=== PATIENT | male | born 1940 | race Caucasian/White ===

== ENCOUNTER 2020-07-13 12:32 | Inpatient (IN) | payer MEDICARE, BC, OTHER ==
--- NOTE | 2020-07-13 13:27 | CT ---
CT BRAIN WITHOUT CONTRAST: HISTORY:Right-sided numbness dizziness right-sided weakness and shuffling gait FINDINGS: There are foci of decreased attenuation in the periventricular white matter, consistent with chronic small vessel ischemic disease. No evidence of acute infarct, hemorrhage, midline shift or abnormal extra-axial fluid collections is seen. The ventricular size is appropriate and the basilar cisterns are patent. The bony calvarium is intact. The visualized paranasal sinuses and mastoid air cells are well aerated. IMPRESSION: No CT evidence of acute intracranial process.
[2020-07-13 13:53] LABS: #Eosinphils 0.2 thou/uL (0.0-0.7); #Lymphocytes 1.5 thou/uL (1.20-3.40); #Monocytes 0.4 thou/uL (0.11-0.59); #Neutrophils 4.2 thou/uL (1.40-6.50); %Basophils 0.7 % (0.0-1.0); %Eosinophils 3.8 % (0.0-10.0); %Lymphocytes 22.9 % (21.0-51.0); %Monocytes 6.5 % (0.0-10.0); Hemoglobin 15.8 g/dL (14.0-18.0); Mean Corpuscular HGB CONC 34.7 g/dL (32.0-36.0); Mean Corpuscular Hemoglobin 35.3 pg (27.0-31.0); Mean Platelet Volume 7.3 fL (7.4-10.4); Platelet Count 144 thou/uL (130-400); RBC Distribution Width 12.1 % (11.5-14.5); Red Blood Cell (RBC) Count 4.48 mill/uL (4.70-6.10); White Blood Cell (WBC) Count 6.3 thou/uL (4.8-10.8)
[2020-07-13] MEDS ORDERED: Aspirin Chewable 81 MG TAB ONE (14:15)
[2020-07-13 14:16] LABS: ALT (SGPT) 14 U/L (8-55); AST (SGOT) 19 U/L (5-34); Albumin 4.2 g/dL (3.4-4.8); Alkaline Phosphatase 60 U/L (40-110); Anion Gap 12 mmol/L (10-20); BUN (Urea Nitrogen) 17 mg/dL (8.4-25.7); Bilirubin, Total 0.8 mg/dL (0.2-1.2); Calc. Creatinine Clearance 0 mL/min (70-130); Calcium 9.1 mg/dL (7.8-10.44); Carbon Dioxide 26 mmol/L (23-31); Chloride 105 mmol/L (98-107); Estimated GFR-MDRD 61; Globulin 2.6 g/dL (2.4-3.5); Glucose 99 mg/dL (83-110); Protein, Total 6.8 g/dL (5.8-8.1); Sodium 139 mmol/L (136-145)
[2020-07-13 14:27] LABS: Bilirubin Negative (Negative); Blood, Urine Negative (Negative); Clarity Clear (Clear); Glucose, Urine (Dipstick) Normal (Negative); Ketone, Urine 10 mg/dL (Negative); Leukocyte Negative Leu/uL (Negative); Nitrite Negative (Negative); Protein, Urine (Dipstick) Negative (Neg-Trace); Specific Gravity, Urine 1.011 (1.002-1.036); Urobilinogen Normal mg/dL (Less than 2); pH, Urine 6.5 (5.0-9.0)
[2020-07-13 17:33] VITALS: BMI 23.5
[2020-07-13] MEDS ORDERED: Labetalol HCl 100 MG/20 ML VIAL SLOW IVP PRN (18:29)
[2020-07-13] MEDS ORDERED: hydrALAZINE 20 MG/ML VIAL SLOW IVP PRN (18:29)
[2020-07-13 18:36] LABS: Troponin I 0.012 ng/mL (< 0.028)
--- NOTE | 2020-07-13 18:39 | PDOC.HHP ---
Hospitalist HPI - History of Present Illness High blood pressure History of Present Illness: PCP: Dr. Norman Schwab The patient is a 80-year-old male with no significant past medical history. He presents to the ER today for elevated blood pressure and right hand numbness. He states that Monday morning at 2 AM he went to the restroom and noticed that his right foot was numb. By Monday this numbness had resolved however he was then having some right hand numbness. He does state that his hands and feet are usually cold and he does sleep with gloves and socks on but he felt that this was different than the cold feeling he feels. Of note the patient on morning was attempting to park his car and his leg was hanging out the door when the car did not slide into park. This struck his heel approximately 60 feet. On Monday he went to see his regular physician. They gave him a tetanus shot and cleaned his wound. He does not remember what his blood pressure was at the time of the office visit. Today he went to urgent care due to elevated blood pressure in the right hand numbness. It was also reported in the ER that he has had dizziness off and on. In the urgent care today his blood pressure was 188/133. Patient denies any chest pain, abdominal pain, headache, trauma other than the car driving, new medications, increased stressors, contact with sick persons. ED Course: Today in the ER they performed lab work, urinalysis, CT of the brain, and EKG. They administered 324 mg of aspirin. Hospitalist ROS - Review of Systems Constitutional: denies: fever, chills, sweats, weakness, malaise, other Eyes: denies: pain, vision change, conjunctivae inflammation, eyelid inflammation, redness, other Respiratory: denies: cough, dry, shortness of breath, hemoptysis, SOB with excertion, pleuritic pain, sputum, wheezing, other Cardiovascular: denies: chest pain, palpitations, orthopnea, paroxysmal noc. dyspnea, edema, light headedness, other Neurological: reports: weakness (Right side), numbness (Right hand and right foot) All other systems reviewed; all pertinent +/- noted in HPI/Subj - Medication Medications: No known drug allergies Current medications: Amitriptyline and Benadryl to sleep at night Hospitalist History - Past Medical History Source: patient Psych: reports: Depression - Past Surgical History Past Surgical History: reports: Tonsillectomy - Family History Family History: reports: no pertinent history - Social History Smoking Status: Former smoker Alcohol: reports: Heavy Drugs: reports: none Living Situation: With Family - Exam General Appearance: NAD, awake alert General - other findings: VS: 189/119, P 84, respiratory 17, temp 98.0, 99% room air Eye: PERRL, anicteric sclera ENT: normocephalic atraumatic, moist mucosa Neck: supple, symmetric, no lymphadenopathy Heart: no murmur, no gallops, no rubs, normal peripheral pulses Respiratory: CTAB, no wheezes, no rales, no ronchi, normal chest expansion Gastrointestinal: soft, non-tender, non-distended, normal bowel sounds Extremities: no cyanosis, no edema Skin - other findings: Abrasions to left perez, left heel wrapped by wound care Neurological: cranial nerve grossly intact, normal sensation to touch Neurological - other findings: Right-sided drift upper and lower extremities, cerebellar intact Psychiatric: normal affect, normal behavior Hospitalist Results - Labs Result Diagrams: 07/13/20 13:32 07/13/20 13:32 Lab results: WBC 6.3 thou/uL (4.8-10.8) 07/13/20 13:32 Hgb 15.8 g/dL (14.0-18.0) 07/13/20 13:32 Hct 45.6 % (42.0-52.0) 07/13/20 13:32 MCV 102.0 fL (78.0-98.0) H 07/13/20 13:32 Plt Count 144 thou/uL (130-400) 07/13/20 13:32 Neutrophils % 66.0 % (42.0-75.0) 07/13/20 13:32 Sodium 139 mmol/L (136-145) 07/13/20 13:32 Potassium 4.0 mmol/L (3.5-5.1) 07/13/20 13:32 Chloride 105 mmol/L (98-107) 07/13/20 13:32 Carbon Dioxide 26 mmol/L (23-31) 07/13/20 13:32 BUN 17 mg/dL (8.4-25.7) 07/13/20 13:32 Creatinine 1.16 mg/dL (0.7-1.3) 07/13/20 13:32 Glucose 99 mg/dL (83-110) 07/13/20 13:32 Calcium 9.1 mg/dL (7.8-10.44) 07/13/20 13:32 Total Bilirubin 0.8 mg/dL (0.2-1.2) 07/13/20 13:32 AST 19 U/L (5-34) 07/13/20 13:32 ALT 14 U/L (8-55) 07/13/20 13:32 Alkaline Phosphatase 60 U/L (40-110) 07/13/20 13:32 Troponin I 0.023 ng/mL (< 0.028) 07/13/20 13:32 B-Natriuretic Peptide 21.2 pg/mL (0-100) 07/13/20 13:32 Serum Total Protein 6.8 g/dL (5.8-8.1) 07/13/20 13:32 Albumin 4.2 g/dL (3.4-4.8) 07/13/20 13:32 Urine Ketones 10 mg/dL (Negative) A 07/13/20 14:19 Urine Blood Negative (Negative) 07/13/20 14:19 Urine Nitrite Negative (Negative) 07/13/20 14:19 Ur Leukocyte Esterase Negative Magali/uL (Negative) 07/13/20 14:19 - EKG Interpretation EKG: SR with PVC 87 bpm - Radiology Interpretation CT scan - head Status: report reviewed by me Additional Comment: IMPRESSION: No CT evidence of acute intracranial process. Hospitalist H&P A/P - Problem (1) TIA (transient ischemic attack) Code(s): G45.9 - TRANSIENT CEREBRAL ISCHEMIC ATTACK, UNSPECIFIED Status: Acute (2) Hypertensive crisis Code(s): I16.9 - HYPERTENSIVE CRISIS, UNSPECIFIED Status: Acute (3) Open wound of heel Code(s): S91.309A - UNSPECIFIED OPEN WOUND, UNSPECIFIED FOOT, INITIAL ENCOUNTER Status: Acute (4) Alcohol use Code(s): Z72.89 - OTHER PROBLEMS RELATED TO LIFESTYLE Status: Chronic - Plan Plan: TIA Neurology consult Carotid Doppler and echo ordered for a.m. Fasting lipid profile in a.m. Continue to trend troponins NIH every shift Swallow eval prior to eating Hypertensive crisis PRN medications available May need to be started on home medications if blood pressure does not begin to decrease without needing medication Vital signs every 4 hours Heel wound Wound care team to evaluate and treat History of alcohol use Patient drinks multiple drinks per day, will be placed on ASE protocol VTE prophylaxis and GI prophylaxis in place CODE STATUS: Full Surrogate decision-maker: Isabella
[2020-07-13 20:46] LABS: Troponin I 0.015 ng/mL (< 0.028)
--- NOTE | 2020-07-13 21:00 | ULT ---
BILATERAL CAROTID DUPLEX ULTRASOUND: DATE: 07/13/2020 HISTORY: CVA. TECHNIQUE: Fontenot scale ultrasound with color flow and spectral Doppler imaging of the extracranial carotid artery systems is performed bilaterally. FINDINGS: Minimal plaque is noted. The peak systolic velocity in the right ICA measures 49 cm/second with an end-diastolic velocity of 1 4 cm/second and a systolic ratio of 0.65. The peak systolic velocity in the left ICA measures 43 cm/second with an end-diastolic velocity of 14 cm/second and a systolic ratio of 0.64. Flow in both vertebral arteries remains antegrade. IMPRESSION: No evidence of hemodynamically significant stenosis. POS: [facility]
[2020-07-13] MEDS: Atorvastatin Calcium 40 MG TAB PO SCH (22:05)
[2020-07-13] MEDS: Amitriptyline HCl 10 MG TAB PO SCH (22:05)
[2020-07-13] MEDS: diphenhydrAMINE 50 MG CAP PO SCH (22:05)
[2020-07-14] MEDS ORDERED: Acetaminophen 325 MG TAB PO PRN (04:53)
[2020-07-14 06:17] LABS: Cardiac Risk 3.9 (Less than 4.5)
[2020-07-14] MEDS: Enoxaparin Sodium 40 MG/0.4 ML SYRINGE SC SCH (08:29)
[2020-07-14] MEDS: Aspirin 81 mg Enteric Coated Tablet PO SCH (08:29)
[2020-07-14 11:47] LABS: SARS-CoV-2 MS2 Positive; SARS-CoV-2 N Gene Negative; SARS-CoV-2 S Gene Negative; SARS-CoV-2 by NAA Not Detected (NotDetected); SARS-CoV-2 orf1ab Negative
--- NOTE | 2020-07-14 13:58 | PDOC.HOSPP ---
- Subjective Encounter Date: 07/14/20 Encounter Time: 13:45 Subjective: f/u for suspected TIA/CVA with negative CT brain. MRI showing acute lacunar infarct in L thalamus. - Objective Vital Signs & Weight: Vital Signs (12 hours) Temp Pulse Resp BP BP Pulse Ox 07/14/20 12:15 72 151/89 H 07/14/20 11:27 97.6 F 81 21 H 98 07/14/20 10:52 128/97 H 07/14/20 07:25 97.6 F 74 18 128/97 H 98 07/14/20 03:45 97.9 F 90 18 151/101 H 98 Weight Admit Weight 173 lb 4.992 oz Weight 173 lb 4.992 oz I&O: 07/13/20 07/14/20 07/15/20 06:59 06:59 06:59 Intake Total 500 240 Output Total 250 Balance 250 240 Result Diagrams: 07/13/20 13:32 07/13/20 13:32 Additional Labs: Laboratory Tests 07/13/20 07/13/20 07/14/20 13:32 16:24 04:19 B-Natriuretic Peptide 21.2 Triglycerides 104 Cholesterol 205 H LDL Cholesterol, Calc 131 HDL Cholesterol 53 COVID-19 PCR Not Detected Radiology Reviewed by me: Yes (MRI brain - acute lacunar infarct L thalamus) EKG Reviewed by me: Yes (Tele - SR) Hospitalist ROS - Medication Medications: Active Medications Generic Name Dose Route Start Last Admin Trade Name Freq PRN Reason Stop Dose Admin Acetaminophen 650 mg 07/14/20 04:53 07/14/20 05:05 Tylenol PO 650 mg Q6H PRN Administration Pain Amitriptyline HCl 10 mg 07/13/20 21:00 07/13/20 22:05 Elavil PO 10 mg HS TORY Administration Aspirin 81 mg 07/14/20 09:00 07/14/20 08:29 Ecotrin PO 81 mg DAILY TORY Administration Atorvastatin Calcium 40 mg 07/13/20 21:00 07/13/20 22:05 Lipitor PO 40 mg HS TORY Administration Diphenhydramine HCl 50 mg 07/13/20 21:00 07/13/20 22:05 Benadryl PO 50 mg HS TORY Administration Enoxaparin Sodium 40 mg 07/14/20 09:00 09/08/20 08:29 Lovenox SC 40 mg 0900 TORY Administration Hydralazine HCl 10 mg 07/13/20 18:29 07/13/20 20:39 Apresoline SLOW IVP 10 mg Q4H PRN Administration SBP Greater Than 180 Labetalol HCl 20 mg 07/13/20 18:29 07/14/20 11:41 Normodyne SLOW IVP 20 mg Q1H PRN Administration BP > 180 Pantoprazole Sodium 40 mg 07/14/20 09:00 07/14/20 08:29 Protonix PO 40 mg DAILY TORY Administration - Exam General Appearance: NAD, awake alert Eye: PERRL, anicteric sclera ENT: normocephalic atraumatic, no oropharyngeal lesions Neck: supple, symmetric, no JVD, no thyromegaly, no lymphadenopathy Heart: RRR, no murmur, no gallops, no rubs, normal peripheral pulses Heart - other findings: S1, S2 Respiratory: CTAB, no wheezes, no rales, no ronchi, normal chest expansion Gastrointestinal: soft, non-tender, non-distended, normal bowel sounds, no palpable masses Extremities: no cyanosis, no clubbing, no edema Skin: normal turgor, no lesions Neurological: cranial nerve grossly intact Neurological - other findings: RU/LE with 4/5 strength Musculoskeletal: normal tone, generalized weakness Psychiatric: normal affect, A&O x 3 Hosp A/P (1) Acute CVA (cerebrovascular accident) Code(s): I63.9 - CEREBRAL INFARCTION, UNSPECIFIED Status: Acute Plan: Lacunar infarct in L thalamus, continue ASA/Lipitor, 2D echo pending (2) Hypertensive urgency Code(s): I16.0 - HYPERTENSIVE URGENCY Status: Acute Plan: Improved, start Metoprolol 12.5mg BID, serial BP monitoring (3) Alcohol abuse Code(s): F10.10 - ALCOHOL ABUSE, UNCOMPLICATED Status: Chronic Plan: Cessation resources prior to d/c (4) HTN (hypertension) Code(s): I10 - ESSENTIAL (PRIMARY) HYPERTENSION Status: Chronic Qualifiers: Hypertension type: essential hypertension Qualified Code(s): I10 - Essential (primary) hypertension Plan: Likely untreated, start Metoprolol 12.5mg BID, serial monitoring (5) Open wound of heel Code(s): S91.309A - UNSPECIFIED OPEN WOUND, UNSPECIFIED FOOT, INITIAL ENCOUNTER Status: Acute Qualifiers: Laterality: left Plan: WCT for local care - Plan PT/OT, social sciences chair, out of bed/ambulate, DVT proph w/SCDs Continue routine stroke protocol Continue ASA/Lipitor 2D echo pending OOB with PT ETOH cessation resources Likely home in am
--- NOTE | 2020-07-14 14:09 | CON ---
NEUROLOGY CONSULTATION DATE OF CONSULTATION: 07/14/2020 REASON FOR CONSULTATION: Transient ischemic attack. HISTORY OF PRESENT ILLNESS: Mr. Cl Blankenship is a 80-year-old male with no significant medical history, presented to the emergency room with hypertension and right hand numbness. Per patient, on Monday morning around 02:00 a.m., he went to the restroom and noticed his right foot was numb. By Monday, the numbness had resolved, and he then was having right hand numbness. He disregarded it, but then on morning he was trying to park his car and his leg was hanging out of the door and he was unable to park, he felt extremely confused and dizzy during that time. On Monday, he went to see his regular physician, who gave him tetanus shot and cleaned his wound, but then he continued to feel dizzy and went to the Urgent Care to check his blood pressure and was concerned about right hand numbness and intermittent episodes of dizziness on 07/13/2020. His blood pressure was found to be 188/133 and he was advised to come to the emergency room for further management. In the emergency room, he was given aspirin and a CT scan of the head was done, which was negative for acute intracranial process. EKG showed normal sinus rhythm and lab work was essentially unremarkable. The patient denies nausea, vomiting, headache, chest pain, focal weakness, focal paresthesias, loss of vision, blurred vision, or loss of consciousness associated with the episode. REVIEW OF SYSTEMS: All 14 systems were reviewed and were negative except for the pertinent positives and negatives mentioned in the HPI. ALLERGIES: NO KNOWN DRUG ALLERGIES. PAST MEDICAL HISTORY: Depression, hypertension. PAST SURGICAL HISTORY: Tonsillectomy. FAMILY HISTORY: No significant family history. SOCIAL HISTORY: The patient lives with family. He is a former smoker and reports heavy alcohol abuse. Denies illegal drug abuse. - Current medications: Amitriptyline and Benadryl to sleep at night Objective Vital Signs & Weight: Vital Signs (12 hours) Temp Pulse Resp BP BP Pulse Ox 07/14/20 12:15 72 151/89 H 07/14/20 11:27 97.6 F 81 21 H 98 07/14/20 10:52 128/97 H 07/14/20 07:25 97.6 F 74 18 128/97 H 98 09/08/20 03:45 97.9 F 90 18 151/101 H 98 Weight Admit Weight 173 lb 4.992 oz Weight 173 lb 4.992 oz I&O: 07/13/20 07/14/20 07/15/20 06:59 06:59 06:59 Intake Total 500 240 Output Total 250 Balance 250 240 Active Medications Generic Name Dose Route Start Last Admin Trade Name Freq PRN Reason Stop Dose Admin Acetaminophen 650 mg 07/14/20 04:53 07/14/20 05:05 Tylenol PO 650 mg Q6H PRN Administration Pain Amitriptyline HCl 10 mg 07/13/20 21:00 07/13/20 22:05 Elavil PO 10 mg HS TORY Administration Aspirin 81 mg 07/14/20 09:00 07/14/20 08:29 Ecotrin PO 81 mg DAILY TORY Administration Atorvastatin Calcium 40 mg 07/13/20 21:00 07/13/20 22:05 Lipitor PO 40 mg HS TORY Administration Diphenhydramine HCl 50 mg 07/13/20 21:00 07/13/20 22:05 Benadryl PO 50 mg HS TORY Administration Enoxaparin Sodium 40 mg 07/14/20 09:00 07/14/20 08:29 Lovenox SC 40 mg 0900 TORY Administration Hydralazine HCl 10 mg 07/13/20 18:29 07/13/20 20:39 Apresoline SLOW IVP 10 mg Q4H PRN Administration SBP Greater Than 180 Labetalol HCl 20 mg 07/13/20 18:29 07/14/20 11:41 Normodyne SLOW IVP 20 mg Q1H PRN Administration BP > 180 Pantoprazole Sodium 40 mg 07/14/20 09:00 07/14/20 08:29 Protonix PO 40 mg DAILY TORY Administration - Exam General Appearance: NAD, awake alert General - other findings: VS: 189/119, P 84, respiratory 17, temp 98.0, 99% room air Eye: PERRL, anicteric sclera ENT: normocephalic atraumatic, moist mucosa Neck: supple, symmetric, no lymphadenopathy Heart: no murmur, no gallops, no rubs, normal peripheral pulses Respiratory: CTAB, no wheezes, no rales, no ronchi, normal chest expansion Gastrointestinal: soft, non-tender, non-distended, normal bowel sounds Extremities: no cyanosis, no edema Skin - other findings: Abrasions to left perez, left heel wrapped by wound care Neurological: Mental status, the patient is alert and oriented to person, place , and time. Recent and remote memory intact. Cranial nerves II through XII intact. Motor; muscle tone and bulk are normal. Strength 5/5 in the left upper and lower extremity. Right upper and lower extremity 4+/5. Right pronator drift. Cerebellar, finger-nose testing intact. Sensory, intact. Gait, deferred due to the patient' s safety reason. DATA REVIEWED: I reviewed the labs, which were essentially unremarkable. EKG showed normal sinus rhythm. Head CT is unremarkable. Lab results: WBC 6.3 thou/uL (4.8-10.8) 07/13/20 13:32 Hgb 15.8 g/dL (14.0-18.0) 07/13/20 13:32 Hct 45.6 % (42.0-52.0) 07/13/20 13:32 MCV 102.0 fL (78.0-98.0) H 07/13/20 13:32 Plt Count 144 thou/uL (130-400) 07/13/20 13:32 Neutrophils % 66.0 % (42.0-75.0) 07/13/20 13:32 Sodium 139 mmol/L (136-145) 07/13/20 13:32 Potassium 4.0 mmol/L (3.5-5.1) 07/13/20 13:32 Chloride 105 mmol/L (98-107) 07/13/20 13:32 Carbon Dioxide 26 mmol/L (23-31) 07/13/20 13:32 BUN 17 mg/dL (8.4-25.7) 07/13/20 13:32 Creatinine 1.16 mg/dL (0.7-1.3) 07/13/20 13:32 Glucose 99 mg/dL (83-110) 07/13/20 13:32 Calcium 9.1 mg/dL (7.8-10.44) 07/13/20 13:32 Total Bilirubin 0.8 mg/dL (0.2-1.2) 07/13/20 13:32 AST 19 U/L (5-34) 07/13/20 13:32 ALT 14 U/L (8-55) 07/13/20 13:32 Alkaline Phosphatase 60 U/L (40-110) 07/13/20 13:32 Troponin I 0.023 ng/mL (< 0.028) 07/13/20 13:32 B-Natriuretic Peptide 21.2 pg/mL (0-100) 07/13/20 13:32 Serum Total Protein 6.8 g/dL (5.8-8.1) 07/13/20 13:32 Albumin 4.2 g/dL (3.4-4.8) 07/13/20 13:32 Urine Ketones 10 mg/dL (Negative) A 07/13/20 14:19 Urine Blood Negative (Negative) 07/13/20 14:19 Urine Nitrite Negative (Negative) 07/13/20 14:19 Ur Leukocyte Esterase Negative Magali/uL (Negative) 07/13/20 14:19 - EKG Interpretation EKG: SR with PVC 87 bpm - Radiology Interpretation CT scan - head Status: report reviewed by me Additional Comment: IMPRESSION: No CT evidence of acute intracranial process. ASSESSMENT AND PLAN: (1) TIA (transient ischemic attack) Code(s): G45.9 - TRANSIENT CEREBRAL ISCHEMIC ATTACK, UNSPECIFIED Status: Acute (2) Hypertensive crisis Code(s): I16.9 - HYPERTENSIVE CRISIS, UNSPECIFIED Status: Acute (3) Open wound of heel Code(s): S91.309A - UNSPECIFIED OPEN WOUND, UNSPECIFIED FOOT, INITIAL ENCOUNTER Status: Acute (4) Alcohol use Code(s): Z72.89 - OTHER PROBLEMS RELATED TO LIFESTYLE Status: Chronic Mr. Cl Blankenship is a 80-year-old male, who was consulted for an episode of dizziness to rule out posterior circulation TIA versus stroke. MRI of the brain to rule out acute intracranial pathology. Carotid dopplers reviewed and were negative for hemodynamically significant stenosis. Head CT did not reveal any acute intracranial pathology. Neuro checks every 4 hours. 2D echo. PT/OT/ speech. Permissive blood pressure control at this time. Strict control of blood glucose. Continue aspirin and statin for secondary stroke prevention. Continue home medications. Continue medical management per primary team. History of alcohol abuse; the patient should continue CIWA protocol. DVT and GI prophylaxis. We will continue to follow. Thank you for the consult. Job ID: [id number] [facility]
--- NOTE | 2020-07-14 15:17 | MRI ---
MRI BRAIN WITHOUT CONTRAST: HISTORY: Right-sided weakness CORRELATION: CT scan from 07/13/2020. FINDINGS: There are changes of cortical atrophy. There are multiple foci of T2 prolongation in the periventricu lar white matter, consistent with chronic small vessel ischemic disease. The ventricular size is appropriate and the basilar cisterns are patent. Numerous tiny foci of low intensity on gradient echo sequences are consistent with remote hemorrhage/hemosiderin deposition which may be seen in amyloid angiopathy. There is a focus of restricted diffusion in the left lateral thalamus consistent with acute infarctio n. No evidence of acute hemorrhage, midline shift or abnormal extra-axial fluid collections is seen. The visualized paranasal sinuses and mastoid air cells are well-aerated. IMPRESSION: Acute lacunar infarction in the left lateral thalamus..
--- NOTE | 2020-07-14 16:15 | EKG ---
Test Reason : Blood Pressure : / mmHG Vent. Rate : 087 BPM Atrial Rate : 087 BPM P-R Int : 160 ms QRS Dur : 096 ms QT Int : 364 ms P-R-T Axes : 055 031 053 degrees QTc Int : 438 ms Sinus rhythm with occasional Premature ventricular complexes Otherwise normal ECG Confirmed by LAURA MCINTOSH ([id number]), supervising film or videotape editor JS GARBER ([id number]) on 07/14/2020 4:14:36 PM Referred By: Confirmed By:LUARA MCINTOSH
[2020-07-14] MEDS: Atorvastatin Calcium 40 MG TAB PO SCH (19:59)
[2020-07-14] MEDS: Amitriptyline HCl 10 MG TAB PO SCH (19:59)
[2020-07-14] MEDS: diphenhydrAMINE 50 MG CAP PO SCH (19:59)
[2020-07-14] MEDS ORDERED: Metoprolol Tartrate 25 MG TAB PO SCH (21:00)
[2020-07-15 03:47] VITALS: BP 149/102; TEMP 97.5
[2020-07-15] MEDS: Aspirin 81 mg Enteric Coated Tablet PO SCH (08:19)
[2020-07-15] MEDS: Enoxaparin Sodium 40 MG/0.4 ML SYRINGE SC SCH (08:20)
[2020-07-15] MEDS ORDERED: Metoprolol Tartrate 25 MG TAB PO SCH (09:00)
--- NOTE | 2020-07-15 12:58 | PDOC.NEUPN ---
- Subjective Encounter Date: 07/15/20 Subjective: No complaints this morning. Ready for discharge. - Objective Vital Signs & Weight: Vital Signs (12 hours) Temp Pulse Resp BP BP Pulse Ox 07/15/20 10:00 149/102 H 07/15/20 08:34 94 L 07/15/20 03:43 97.5 F L 65 23 H 149/102 H 94 L Weight Admit Weight 173 lb 4.992 oz Weight 173 lb 4.992 oz I&O: 07/14/20 07/15/20 07/16/20 06:59 06:59 06:59 Intake Total 500 403 Output Total 250 Balance 250 403 Result Diagrams: 07/13/20 13:32 07/13/20 13:32 Radiology Reviewed by me: Yes EKG Reviewed by me: Yes ROS - Review of Systems Constitutional: denies: fever, chills, sweats, weakness, malaise, other Eyes: denies: pain, vision change, conjunctivae inflammation, eyelid inflammation, redness, other ENT: denies: ear pain, ear discharge, nose pain, nose discharge, nose congestion , mouth pain, mouth swelling, throat pain, throat swelling, other Respiratory: denies: cough, dry, shortness of breath, hemoptysis, SOB with excertion, pleuritic pain, sputum, wheezing, other Cardiovascular: denies: no pertinent history, AFIB, CAD, CHF, HTN, OH, Syncope, Hyperlipidemia, Mitral valve stenosis, Aortic stenosis, Valve insufficiency, Pulmonary hypertension, Other Gastrointestinal: denies: nausea, vomiting, abdominal pain, diarrhea, constipation, melena, hematochezia, other Genitourinary: denies: dysuria, frequency, incontinence, hematuria, retention, other Musculoskeletal: denies: neck pain, shoulder pain, arm pain, back pain, hand pain, leg pain, foot pain, other Skin: denies: rash, lesions, mily, bruising, other Neurological: denies: weakness, numbness, incoordination, change in speech, confusion, seizures, other - Exam General Appearance: awake alert Eye: PERRL ENT: normocephalic atraumatic Neck: supple Respiratory: CTAB Cardiovascular: RRR Gastrointestinal: soft Extremities: no cyanosis Skin: normal turgor Neurological: CN's grossly intact, normal sensation to touch, no new deficit Musculoskeletal: normal tone, normal strength, no muscle wasting PSYCH: normal affect, normal behavior, A&O x 3 Results - Labs Result Diagrams: 07/13/20 13:32 07/13/20 13:32 Lab results: WBC 6.3 thou/uL (4.8-10.8) 07/13/20 13:32 Hgb 15.8 g/dL (14.0-18.0) 07/13/20 13:32 Hct 45.6 % (42.0-52.0) 07/13/20 13:32 MCV 102.0 fL (78.0-98.0) H 07/13/20 13:32 Plt Count 144 thou/uL (130-400) 07/13/20 13:32 Neutrophils % 66.0 % (42.0-75.0) 07/13/20 13:32 Sodium 139 mmol/L (136-145) 07/13/20 13:32 Potassium 4.0 mmol/L (3.5-5.1) 07/13/20 13:32 Chloride 105 mmol/L (98-107) 07/13/20 13:32 Carbon Dioxide 26 mmol/L (23-31) 07/13/20 13:32 BUN 17 mg/dL (8.4-25.7) 07/13/20 13:32 Creatinine 1.16 mg/dL (0.7-1.3) 07/13/20 13:32 Glucose 99 mg/dL (83-110) 07/13/20 13:32 Calcium 9.1 mg/dL (7.8-10.44) 07/13/20 13:32 Total Bilirubin 0.8 mg/dL (0.2-1.2) 07/13/20 13:32 AST 19 U/L (5-34) 07/13/20 13:32 ALT 14 U/L (8-55) 07/13/20 13:32 Alkaline Phosphatase 60 U/L (40-110) 07/13/20 13:32 Troponin I 0.015 ng/mL (< 0.028) 07/13/20 20:12 B-Natriuretic Peptide 21.2 pg/mL (0-100) 07/13/20 13:32 Serum Total Protein 6.8 g/dL (5.8-8.1) 07/13/20 13:32 Albumin 4.2 g/dL (3.4-4.8) 07/13/20 13:32 Urine Ketones 10 mg/dL (Negative) A 07/13/20 14:19 Urine Blood Negative (Negative) 07/13/20 14:19 Urine Nitrite Negative (Negative) 07/13/20 14:19 Ur Leukocyte Esterase Negative Magali/uL (Negative) 07/13/20 14:19 - EKG Interpretation EKG: NSR - Radiology Interpretation MRI - head Additional Comment: negative for acute inracranial process. PN A/P (1) Hypertensive crisis Code(s): I16.9 - HYPERTENSIVE CRISIS, UNSPECIFIED Status: Acute (2) Hypertensive urgency Code(s): I16.0 - HYPERTENSIVE URGENCY Status: Acute (3) Alcohol abuse Code(s): F10.10 - ALCOHOL ABUSE, UNCOMPLICATED Status: Chronic (4) Alcohol use Code(s): Z72.89 - OTHER PROBLEMS RELATED TO LIFESTYLE Status: Chronic (5) HTN (hypertension) Code(s): I10 - ESSENTIAL (PRIMARY) HYPERTENSION Status: Chronic Qualifiers: Hypertension type: essential hypertension Qualified Code(s): I10 - Essential (primary) hypertension - Plan 80 year old consulted for dizziness and weakness in the setting of hypertensive emergency. MRI brain reviewed and was negative for acute intracranial process. Carotid dopplers did not reveal hemodynamically significant stenosis. 2D echo showed LVEF 50-55%. No thrombus or PFO. Continue aspirin and statin for secondary stroke prevention. Strict control of BP and BG. Continue home medications. Continue medical management per primary team. Plan discussed with the patient and during MDR rounds.
--- NOTE | 2020-07-16 08:33 | DIS ---
DATE OF ADMISSION: 07/14/2020 DATE OF DISCHARGE: 07/15/2020 DISCHARGE DIAGNOSES: 1. Acute cerebrovascular accident in the left lateral thalamus. 2. Hypertension, labile. 3. Alcohol abuse. 4. Hypertensive urgency, resolved. 5. Open wound of the left heel. CONSULTATIONS: Dr. Sandoval with Neurology Service. PERTINENT LABORATORY AND X-RAY FINDINGS: Complete metabolic profile within normal limits. Total cholesterol 205, triglycerides 104, HDL 53, and LDL 131. Troponin I negative x3. BNP 21.2. CBC showed MCV of 102. COVID-19 PCR not detected on 07/13/2020. CT of the brain without contrast dated 07/13/2020, showed no acute intracranial process. Carotid doppler study dated 07/13/2020, showed no hemodynamically significant stenosis. MRI of the brain dated 07/14/2020 showed acute lacunar infarct in the left lateral thalamus. 2D transthoracic echocardiogram dated 07/14/2020 showed ejection fraction of 50% to 55%. Diastolic dysfunction. Mild mitral, tricuspid, and pulmonic regurgitation. HOSPITAL COURSE: The patient was admitted to the Stroke Unit after initially presenting with right hand numbness. The patient underwent evaluation including CT and MRI imaging of the brain with MRI confirming a left lateral thalamus lacunar infarct. The patient was also noted with elevated blood pressure consistent with hypertensive urgency at the time of admission. The patient was initiated on metoprolol with titration of the dose to 25 mg b.i.d. The patient likely will need additional titration of his antihypertensive regimen on an ongoing basis after discharge. The patient remained clinically stable through the hospital course, ambulating without assistance or difficulty, tolerating regular oral intake without focal deficits other than mild right upper extremity weakness. Current recommendations are to continue general medical management as well as moderation of alcohol intake. I have examined the patient at the time of discharge and discussed followup instructions. The patient verbalized understanding and agreement and ready for discharge on 07/15/2020. DISCHARGE MEDICATIONS: 1. Enteric-coated aspirin 81 mg p.o. daily. 2. Lipitor 40 mg p.o. at bedtime. 3. Metoprolol tartrate 25 mg p.o. b.i.d. 4. Diphenhydramine 50 mg p.o. at bedtime. 5. Elavil 10 mg p.o. at bedtime. FOLLOWUP: The patient may follow up with his primary care provider, Dr. Norman Schwab within 7 days of discharge. CONDITION ON DISCHARGE: Stable. ACTIVITY: Ad-rina. DIET: Heart healthy. CODE STATUS: Full. DISPOSITION: Home on 07/15/2020. TIME SPENT: Total time preparing and coordinating discharge, 32 minutes. Job ID: [id number]
== END 2020-07-15 11:14 | disposition home or self-care (01) | DRG 305 ==
LOC: ERS 12:32 → 2SE 15:22 → OBSVTOIN 07-14 16:08
PROVIDERS: ADMIT Family Medicine; ATTEND Family Medicine
PROC: HZ2ZZZZ Detoxification Services for Substance Abuse Treatment (ICD-10-PCS; principal; 2020-07-14)
DX: I16.1 Hypertensive emergency (principal); S91.309A Unspecified open wound, unspecified foot, initial encounter; I10 Essential (primary) hypertension; F32.9 Major depressive disorder, single episode, unspecified; F10.10 Alcohol abuse, uncomplicated; Z90.49 Acquired absence of other specified parts of digestive tract; Z87.891 Personal history of nicotine dependence; Z72.89 Other problems related to lifestyle; Z20.828 Contact with and (suspected) exposure to other viral communicable diseases
CPT/HCPCS: 36415; 70450; 70551; 80053; 80061; 81003; 83880; 84484; 85025; 87635; 93005; 93306; 93880; 96372; 96374; 96375; G0378; J0360; J1650; Q0163; U0003

== ENCOUNTER 2022-04-29 11:43 | Outpatient (CLI) | payer MEDICARE, BC | END 2022-04-29 11:44 | disposition home or self-care (01) | LOC: CT 11:43 | PROVIDERS: ATTEND Neurological Surgery | DX: I62.03 Nontraumatic chronic subdural hemorrhage (principal) | CPT/HCPCS: 70450 ==